=== PATIENT | male | born 1960 | race Hispanic/Latino ===

== ENCOUNTER 2018-04-20 14:33 | Emergency (ER) | payer MEDICARE ==
[2018-04-20 14:39] VITALS: BMI 31.6
[2018-04-20 14:50] VITALS: TEMP 98.4
--- NOTE | 2018-04-20 14:50 | ED PDOC ---
Arrival/HPI - General Time Seen by Provider: 04/20/18 14:45 Historian: Patient, Family (Brother), EMS - History of Present Illness Time/Duration: Prior to Arrival Symptom Course: Unchanged Severity Level: Moderate Associated Symptoms (Text): 04/20/18 14:48 Patient is mentally challenged and a very poor historian. He lives with his brother. Brother states that the patient went to bed last night and he was fine. When the brother woke up today at approximately noon the patient was found to have a left sided facial droop dribbling out of the left side of his mouth and talking on the left side of his mouth. No upper or lower extremity weakness. Past Medical History - Infectious Disease Hx of Infectious Diseases: None - Tetanus Immunization Tetanus Immunization: Up to Date - Neurological Hx Seizures: Yes - Psychiatric Hx Depression: No Hx Emotional Abuse: No Hx Physical Abuse: No Hx Substance Use: No - Past Surgical History Past Surgical History: No Previous - Suicidal Assessment Feels Threatened In Home Enviroment: No Family/Social History - Physician Review Nursing Documentation Reviewed: Yes Family/Social History: Unknown Family HX Smoking Status: Never Smoked Hx Alcohol Use: No Hx Substance Use: No Allergies/Home Meds Allergies/Adverse Reactions: Allergies phenobarbital Allergy (Verified 04/20/18 14:40) RASH Home Medications: Home Meds Medication Instructions Recorded Confirmed Carbamazepine 200 mg PO QID 10/01/12 09/26/13 Levetiracetam [Keppra] 750 mg PO BID 10/01/12 09/26/13 Review of Systems - Physician Review All systems were reviewed & negative as marked: Yes - Review of Systems Constitutional: absent: Fatigue Respiratory: absent: SOB, Cough Cardiovascular: absent: Chest Pain Gastrointestinal: absent: Abdominal Pain, Diarrhea, Vomiting Neurological: Focal Weakness. absent: Headache, Dizziness, Gait Changes Physical Exam Vital Signs Temp Pulse Resp BP Pulse Ox 04/20/18 16:57 102 H 18 145/95 H 98 04/20/18 14:49 98.4 F 108 H 20 173/108 H 92 L Temperature: Afebrile Blood Pressure: Hypertensive Pulse: Tachycardic Respiratory Rate: Normal Appearance: Positive for: Well-Appearing, Non-Toxic, Comfortable Pain Distress: None Mental Status: Positive for: other (Awake and alert) Finger Stick Blood Glucose: 259 - Systems Exam Head: Present: Atraumatic, Normocephalic Pupils: Present: PERRL Extroacular Muscles: Present: EOMI Conjunctiva: Present: Normal Ears: Present: NORMAL TM, Normal Canal. No: Erythema, TM Bulging Mouth: Present: Moist Mucous Membranes Pharnyx: No: ERYTHEMA, EXUDATE, TONSILS ENLARGED Neck: Present: Normal Range of Motion Respiratory/Chest: Present: Clear to Auscultation, Good Air Exchange, Decreased Breath Sounds. No: Respiratory Distress, Accessory Muscle Use Cardiovascular: Present: Regular Rate and Rhythm, Normal S1, S2. No: Murmurs Abdomen: No: Tenderness, Distention, Peritoneal Signs, Rebound, Guarding Back: Present: Normal Inspection Upper Extremity: Present: Normal Inspection. No: Cyanosis, Edema Lower Extremity: Present: Normal Inspection. No: Edema Neurological: Present: GCS=15, Speech Normal, Motor Func Grossly Intact, Normal Sensory Function, Normal Cerebellar Funct, Gait Normal. No: CN II-XII Intact ( Left facial droop) Skin: Present: Warm, Dry, Normal Color. No: Rashes Psychiatric: Present: Alert, Oriented x 3, Normal Insight, Normal Concentration Medical Decision Making ED Course and Treatment: 04/20/18 17:11 EKG shows sinus tachycardia rate approximately 110 with poor R-wave progression and Q waves inferiorly and no acute ST or T-wave changes. 04/20/18 17:19 Discussed with , who will follow up in the office and refers to neurology. Discussed with Dr.A Ortiz, who requests prednisone and Famvir and follow-up tomorrow afternoon with Dr.V Ortiz. - Lab Interpretations Lab Results: 04/20/18 15:26 04/20/18 15:26 Lab Results 04/20/18 15:26: Alcohol, Quantitative < 10 04/20/18 15:26: Sodium 146, Potassium 3.9, Chloride 105, Carbon Dioxide 24, Anion Gap 21 H, BUN 30 H, Creatinine 1.1, Est GFR ( Amer) > 60, Est GFR ( Non-Af Amer) > 60, Random Glucose 289 H, Calcium 9.7, Phosphorus 2.8, Magnesium 2.4 H, Total Bilirubin 0.3, AST 21, ALT 22, Alkaline Phosphatase 109, Lactate Dehydrogenase 363, Total Creatine Kinase 33 L, Troponin I < 0.01, Total Protein 8.0, Albumin 4.5, Globulin 3.5, Albumin/Globulin Ratio 1.3 04/20/18 15:26: PT 11.5, INR 1.01, APTT 26.8 04/20/18 15:26: WBC 9.9, RBC 4.97, Hgb 15.7, Hct 45.7, MCV 92.0, MCH 31.6, MCHC 34.4, RDW 12.8, Plt Count 278, MPV 10.3, Gran % 78.6 H, Lymph % (Auto) 11.4 L, [place] % (Auto) 8.7 H, Eos % (Auto) 1.0 L, Baso % (Auto) 0.3, Gran # 7.82 H, Lymph # (Auto) 1.1 L, [place] # (Auto) 0.9 H, Eos # (Auto) 0.1, Baso # (Auto) 0.03 - RAD Interpretation Radiology Orders: 04/20/18 14:45 HEAD W/O CONTRAST [CT] Stat 04/20/18 14:46 CHEST PORTABLE [RAD] Stat CT scan of the head as read by the radiologist shows no acute findings. Support Services Coordinator: Radiologist Disposition/Present on Arrival - Present on Arrival Any Indicators Present on Arrival: No History of DVT/PE: No History of Uncontrolled Diabetes: No Urinary Catheter: No History of Decub. Ulcer: No History Surgical Site Infection Following: CABG - Mediastinitis - Disposition Have Diagnosis and Disposition been Completed?: Yes Diagnosis: Maurer's palsy Disposition: HOME/ ROUTINE Disposition Time: 17:20 Patient Plan: Discharge Condition: FAIR Discharge Instructions (ExitCare): Maurer's Palsy Additional Instructions: Follow-up in the office tomorrow afternoon with Dr.V Ortiz. Follow up in ER as needed. Prescriptions: Prednisone [Deltasone] 60 mg PO DAILY #15 tablet Famciclovir [Famvir] 500 mg PO Q8 #21 tab Referrals: Chucky Lind MD [Primary Care Provider] - Follow up with primary
--- NOTE | 2018-04-20 15:30 | RAD ---
Date of service: 04/20/2018 HISTORY: weak COMPARISON: No prior. FINDINGS: LUNGS: No active pulmonary disease. PLEURA: No significant pleural effusion identified, no pneumothorax apparent. CARDIOVASCULAR: Normal. OSSEOUS STRUCTURES: No significant abnormalities. VISUALIZED UPPER ABDOMEN: Normal. OTHER FINDINGS: None. IMPRESSION: No active disease.
[2018-04-20 15:47] LABS: ALB/GLOB RATIO 1.3 (1.1-1.8); ALBUMIN 4.5 g/dL (3.0-4.8); ALT/SGPT 22 U/L (7-56); AST/SGOT 21 U/L (17-59); BLOOD UREA NITROGEN 30 mg/dL (7-21); CALCIUM 9.7 mg/dL (8.4-10.5); GFR AFRICAN-AMERICAN > 60; GFR NON-AFRICAN AMERICAN > 60
[2018-04-20 15:49] LABS: BASO # 0.03 K/mm3 (0.0-2.0); BASO % 0.3 % (0.0-3.0); EOS # 0.1 (0.0-0.7); GRAN # 7.82 (1.4-6.5); GRAN % 78.6 % (50.0-68.0); HEMOGLOBIN 15.7 g/dL (14.0-18.0); LYMPH # 1.1 (1.2-3.4); LYMPH % 11.4 % (22.0-35.0); MEAN CORPUSCULAR HEMOGLOBIN 31.6 pg (25.0-35.0); MEAN CORPUSCULAR HGB CONC 34.4 g/dl (31.0-37.0); MEAN PLATELET VOLUME 10.3 fl (7.0-11.0); MONO # 0.9 (0.1-0.6); MONO % 8.7 % (1.0-6.0); RBC 4.97 10^6/uL (3.5-6.1); RED CELL DISTRIBUTION WIDTH 12.8 % (11.5-14.5); WHITE BLOOD COUNT 9.9 10^3/ul (4.5-11.0)
[2018-04-20 15:57] LABS: TROPONIN I < 0.01 ng/mL
--- NOTE | 2018-04-20 16:05 | CT ---
Date of service: 04/20/2018 PROCEDURE: CT HEAD WITHOUT CONTRAST. HISTORY: smith's palsy COMPARISON: 09/26/2013. TECHNIQUE: Axial computed tomography images were obtained through the head/brain without intravenous contrast. Radiation dose: Total exam DLP = 953.84 mGy-cm. This CT exam was performed using one or more of the following dose reduction techniques: Automated exposure control, adjustment of the mA and/or kV according to patient size, and/or use of iterative reconstruction technique. FINDINGS: HEMORRHAGE: No intracranial hemorrhage. BRAIN: No mass effect or edema. Cortical and cerebellar atrophy, periventricular small vessel disease. Small lacunar infarcts again identified. VENTRICLES: Unremarkable. No hydrocephalus. CALVARIUM: Unremarkable. PARANASAL SINUSES: Unremarkable as visualized. No significant inflammatory changes. MASTOID AIR CELLS: Unremarkable as visualized. No inflammatory changes. OTHER FINDINGS: None. IMPRESSION: No acute intracranial abnormalities. No significant findings to account for the clinical presentation. No significant interval change compared to the prior examination(s).
[2018-04-20 16:06] LABS: INR 1.01; PARTIAL THROMBOPLASTIN TIME 26.8 Seconds (25.1-36.5); PROTHROMBIN TIME 11.5 SECONDS (9.4-12.5)
[2018-04-20 17:00] VITALS: O2SAT 98
[2018-04-20 17:51] VITALS: BP 144/89; PULSE 98; RESP 16
--- NOTE | 2018-04-21 15:21 | CARD ---
APPROVED REPORT Date of service: 04/20/2018 EKG Measurement Heart [id number] CO [id number] [id number] <Conclusion> Sinus tachycardia Left posterior fascicular block Abnormal ECG
== END 2018-04-20 18:04 | disposition home or self-care (01) ==
LOC: ED 14:33
DX: G51.0 Bell's palsy (principal)